=== PATIENT | female | born 1970 | race Caucasian/White ===

== ENCOUNTER 2018-02-13 10:08 | Emergency (ER) | payer MEDICAID, OTHER ==
[~2018-02-13] VITALS: Ht 165.1 cm; Wt 81.8 kg
[~2018-02-13 10:08] MED LIST: ALBU6.7H INH; COROTSUS LEFT EAR; IBUP-1984 PO
[2018-02-13 10:38] VITALS: BP 139/89
[2018-02-13] MEDS ORDERED: ketorolac trometh inj. 60 MG/2 ML VIAL IM ONE (10:55)
[2018-02-13] MEDS ORDERED: CYCL-1 PO (10:59)
== END 2018-02-13 11:11 | disposition home or self-care (01) ==
LOC: ER 10:08
DX: M54.5 Low back pain (principal); G89.29 Other chronic pain; D36.10 Benign neoplasm of peripheral nerves and autonomic nervous system, unspecified; J45.909 Unspecified asthma, uncomplicated; K21.9 Gastro-esophageal reflux disease without esophagitis; Z79.899 Other long term (current) drug therapy
CPT/HCPCS: 99283

== ENCOUNTER 2018-12-17 08:56 | Emergency (ER) | payer MEDICAID ==
[~2018-12-17] VITALS: Ht 165.1 cm; Wt 79.0 kg
[~2018-12-17 08:56] MED LIST changes: +CYCL-1 PO
[2018-12-17] MEDS ORDERED: LIDOcaine Viscous 15ml cup PO ONE (09:25)
[2018-12-17] MEDS ORDERED: mag hydrox/Alum hydrox/simeth 30ml oral suspension PO ONE (09:25)
[2018-12-17] MEDS ORDERED: famotidine 20mg tablet PO ONE (09:25)
[2018-12-17] MEDS ORDERED: pantoprazole 40mg Tablet.DR PO ONE (09:25)
[2018-12-17 10:16] VITALS: BP 144/91
[2018-12-17] MEDS ORDERED: PANT-47 PO (10:24)
== END 2018-12-17 10:39 | disposition home or self-care (01) ==
LOC: ER 08:57
DX: K21.9 Gastro-esophageal reflux disease without esophagitis (principal); J45.909 Unspecified asthma, uncomplicated
CPT/HCPCS: 93005; 99284

== ENCOUNTER 2022-01-21 20:16 | Emergency (ER) | payer MEDICAID ==
[~2022-01-21] VITALS: Ht 165.1 cm; Wt 86.4 kg
[~2022-01-21 20:16] MED LIST changes: -ALBU6.7H INH; -COROTSUS LEFT EAR; -CYCL-1 PO; +GABA600T13 PO; -IBUP-1984 PO; +MELO-102 PO; +METF500T PO
[2022-01-21] MEDS ORDERED: acetaminophen 325mg tablet PO ONE (20:55)
[2022-01-21] MEDS ORDERED: dexamethasone sod phosphate 10mg/ml inj IV STA (21:06)
[2022-01-21] MEDS ORDERED: normal saline 1000ML IV soln IVB ONE (21:55)
[2022-01-21] MEDS ORDERED: ipratropium/albuterol 3ml nebule NEB ONE (22:45)
[2022-01-21 23:06] LABS: BASOPHILS % (AUTO) 0.6 % (0-1); EOSINOPHILS # (AUTO) 0.1 X10'3 (0-0.9); EOSINOPHILS % (AUTO) 2.3 % (0-6); HEMATOCRIT 36.1 % (35.0-45.0); HEMOGLOBIN 12.3 g/dl (12.0-16.0); LYMPHOCYTES # (AUTO) 0.5 X10'3 (1.1-4.8); LYMPHOCYTES % (AUTO) 8.8 % (21-51); MEAN CORPUSCULAR HEMOGLOBIN 28.4 PG (27.0-31.0); MEAN CORPUSCULAR VOLUME 83.6 FL (78-98); MEAN PLATELET VOLUME 7.8 FL (7.4-10.4); MONOCYTES # (AUTO) 0.4 X10'3 (0-0.9); MONOCYTES % (AUTO) 7.6 % (2-12); NEUTROPHILS # (AUTO) 4.5 X10'3 (1.8-7.7); NEUTROPHILS % (AUTO) 80.7 % (42-75); PLATELET COUNT 222 X10'3 (140-440); RED BLOOD COUNT 4.31 X10'6 (4.20-5.60); RED CELL DISTRIBUTION WIDTH 13.9 % (11.5-14.5); WHITE BLOOD COUNT 5.6 X10'3 (4.5-11.0)
[2022-01-21 23:10] LABS: ALANINE AMINOTRANSFERASE 174 U/L (12-78); ALBUMIN 3.2 G/DL (3.4-5.0); ALBUMIN/GLOBULIN RATIO 1.1 (1.1-1.5); ALKALINE PHOSPHATASE 141 IU/L (46-116); ANION GAP 7 (8-16); ASPARTATE AMINO TRANSFERASE 50 U/L (10-37); BILIRUBIN,TOTAL 0.2 MG/DL (0.1-1.0); BLOOD UREA NITROGEN 11 MG/DL (7-18); BUN/CREATININE RATIO 12.6 (6.6-38.0); CALCIUM 7.7 MG/DL (8.5-10.1); CHLORIDE 107 MMOL/L (99-107); CREATININE 0.87 MG/DL (0.40-0.90); GLUCOSE 239 MG/DL (70-104); POTASSIUM 3.6 MMOL/L (3.5-5.1); SODIUM 137 MMOL/L (135-145); TOTAL CARBON DIOXIDE 22.7 MMOL/L (24-32); TOTAL PROTEIN 6.2 G/DL (6.4-8.2); eGFR 69 ML/MIN
[2022-01-21 23:15] LABS: CLARITY,URINE SLIGHTLY CLOUDY (Clear); COLOR,URINE YELLOW (Yellow); GLUCOSE, URINE >=1000 mg/dl (Neg); KETONES,URINE NEGATIVE (Neg); LEUKOCYTE ESTERASE ,URINE NEGATIVE (Neg); NITRITES, URINE POSITIVE (Neg); OCCULT BLOOD,URINE SMALL (Neg); PROTEIN,URINE NEGATIVE (Neg); UROBILINOGEN,URINE 0.2 E.U/dL (0.2-1.0)
[2022-01-21 23:16] LABS: UA COLLECTION TYPE CLN CATCH MIDSTREAM
[2022-01-21 23:22] LABS: BACTERIA,URINE 4+ /HPF (Neg); RBC,URINE 0-2 /HPF (0-2)
[2022-01-21 23:23] LABS: MUCUS STRANDS FEW /LPF (Neg); SQUAMOUS EPITHELIAL CELL,UR FEW /LPF (FEW)
[2022-01-21] MEDS ORDERED: BEBTELOVIMAB 175 MG/2 ML VIAL IV ONE (23:45)
[2022-01-21] MEDS ORDERED: albuterol 2.5 MG/3 ML nebule NEB PRN (23:50)
[2022-01-21] MEDS ORDERED: famotidine/PF 10 mg/ml inj IV PRN (23:50)
[2022-01-21] MEDS ORDERED: acetaminophen 325mg tablet PO PRN (23:50)
[2022-01-21] MEDS ORDERED: diphenhydrAMINE 50 mg/ml inj IV PRN (23:50)
[2022-01-21] MEDS ORDERED: hydrocortisone sod succ/PF 100mg/2ml inj. IV PRN (23:50)
[2022-01-21] MEDS ORDERED: epiNEPHrine 1 mg/ml inj IM PRN (23:50)
[2022-01-22] MEDS ORDERED: CEPH-585 PO (00:38)
[2022-01-22 02:59] VITALS: BP 128/84
--- NOTE | 2022-01-24 12:34 | NUR ---
PT CALLED REGARDING VISIT ON 01/21, NO ANSWER, MSG LEFT TO RETURN CALL.
--- NOTE | 2022-01-29 10:29 | NUR ---
3RD CALL MADE TO PT REGARDING VISIT ON 01/21 AND LAB WORK RECEIVED. NO ANSWER, MSG LEFT TO RETURN CALL AND LETTER SENT TO PT'S RESIDENCE
--- NOTE | 2022-01-30 16:16 | NUR ---
PT CALLED REGARDING VISIT ON 01/21/22. INFORMED THAT UA RESULTS WERE POSITIVE FOR A UTI AND THAT THE MEDICATION GIVEN WAS RESISTENT TO THE BACTERIA GROWN IN THE CULTURE AND THAT A NEW RX WOULD BE GIVEN. PT REQUESTED THAT NEW RX BE CALLED INTO [facility] [address] SEPTRA DS, 1 PO BID x7 DAYS, #14 WAS CALLED INTO [facility] ON [facility]. REQUESTED
== END 2022-01-22 04:21 | disposition home or self-care (01) ==
LOC: ER 20:17
DX: U07.1 COVID-19 (principal); N39.0 Urinary tract infection, site not specified; F17.200 Nicotine dependence, unspecified, uncomplicated; K21.9 Gastro-esophageal reflux disease without esophagitis; E11.9 Type 2 diabetes mellitus without complications; J45.909 Unspecified asthma, uncomplicated; F15.10 Other stimulant abuse, uncomplicated; Z79.899 Other long term (current) drug therapy
CPT/HCPCS: 36415; 71045; 80053; 81001; 83605; 84145; 85025; 87040; 87077; 87088; 87186; 87502; 87503; 87635; 93005; 94640; 96361; 96374; 99285; C9803; J1100; J7030; M0222; Q0222; 94760

== ENCOUNTER 2022-04-19 19:41 | Emergency (ER) | payer MEDICAID ==
[~2022-04-19] VITALS: Ht 165.1 cm; Wt 78.6 kg
[~2022-04-19 19:41] MED LIST changes: +CEPH-585 PO
--- NOTE | 2022-04-19 19:56 | NUR ---
DR MCFADDEN AWARE OF PT.
--- NOTE | 2022-04-19 19:57 | NUR ---
PT IS BEING TAKEN TO CT ON A WHEELCHAIR.
[2022-04-19 20:59] LABS: BASOPHILS # (AUTO) 0.1 X10'3 (0-0.2); BASOPHILS % (AUTO) 0.8 % (0-1); EOSINOPHILS # (AUTO) 0.2 X10'3 (0-0.9); EOSINOPHILS % (AUTO) 1.7 % (0-6); LYMPHOCYTES # (AUTO) 2.2 X10'3 (1.1-4.8); LYMPHOCYTES % (AUTO) 21.8 % (21-51); MEAN CORPUSCULAR HGB CONC 34.9 g/dL (33.0-36.5); MONOCYTES # (AUTO) 0.7 X10'3 (0-0.9); NEUTROPHILS # (AUTO) 6.9 X10'3 (1.8-7.7); NEUTROPHILS % (AUTO) 68.7 % (42-75); PLATELET COUNT 264 X10'3 (140-440); RED BLOOD COUNT 5.19 X10'6 (4.20-5.60); RED CELL DISTRIBUTION WIDTH 13.5 % (11.5-14.5)
[2022-04-19 21:00] LABS: APTT 26 SECONDS (22-32)
[2022-04-19 21:01] LABS: ALANINE AMINOTRANSFERASE 119 U/L (12-78); ALBUMIN 3.9 G/DL (3.4-5.0); ALBUMIN/GLOBULIN RATIO 1.1 (1.1-1.5); ALKALINE PHOSPHATASE 192 IU/L (46-116); ANION GAP 9 (8-16); ASPARTATE AMINO TRANSFERASE 29 U/L (10-37); BILIRUBIN,TOTAL 0.5 MG/DL (0.1-1.0); BLOOD UREA NITROGEN 17 MG/DL (7-18); BUN/CREATININE RATIO 14.8 (6.6-38.0); CALCIUM 9.2 MG/DL (8.5-10.1); CHLORIDE 103 MMOL/L (99-107); CREATININE 1.15 MG/DL (0.40-0.90); GLUCOSE 276 MG/DL (70-104); SODIUM 140 MMOL/L (135-145); TOTAL CARBON DIOXIDE 28.2 MMOL/L (24-32); TOTAL PROTEIN 7.6 G/DL (6.4-8.2); eGFR 50 ML/MIN
[2022-04-19] MEDS ORDERED: normal saline 1000ML IV soln IVB ONE (22:15)
[2022-04-20 01:43] VITALS: BP 134/87
== END 2022-04-20 01:51 | disposition home or self-care (01) ==
LOC: ER 19:42
DX: E86.0 Dehydration (principal); Z20.822 Contact with and (suspected) exposure to COVID-19; J44.9 Chronic obstructive pulmonary disease, unspecified; E11.9 Type 2 diabetes mellitus without complications; F17.210 Nicotine dependence, cigarettes, uncomplicated; F15.10 Other stimulant abuse, uncomplicated; Z79.899 Other long term (current) drug therapy
CPT/HCPCS: 36415; 70450; 71045; 80053; 82948; 85025; 85610; 85730; 87635; 93005; 96360; 99285; C9803; J7030

== ENCOUNTER 2022-04-22 16:53 | Emergency (ER) | payer MEDICAID | END 2022-04-22 18:52 | disposition left against medical advice (07) | LOC: ER 16:54 | DX: E11.8 Type 2 diabetes mellitus with unspecified complications (principal); Z53.21 Procedure and treatment not carried out due to patient leaving prior to being seen by health care provider ==

== ENCOUNTER 2022-09-11 21:24 | Emergency (ER) | payer MEDICAID ==
[~2022-09-11] VITALS: Ht 165.1 cm; Wt 81.8 kg
[2022-09-11 21:31] VITALS: BP 139/93
== END 2022-09-12 04:43 | disposition left against medical advice (07) ==
LOC: ER 21:25
DX: R68.84 Jaw pain (principal); Z53.21 Procedure and treatment not carried out due to patient leaving prior to being seen by health care provider

== ENCOUNTER 2023-12-07 18:59 | Inpatient (IN) | payer MEDICAID ==
[~2023-12-07] VITALS: Ht 165.1 cm; Wt 77.1 kg
[~2023-12-07 18:59] MED LIST changes: -CEPH-585 PO
[2023-12-07 21:35] VITALS: PULSE 94; RESP 18; O2SAT 97
[2023-12-07] MEDS: ipratropium/albuterol 3ml nebule NEB ONE (21:35)
[2023-12-07 21:43] VITALS: PULSE 94; RESP 16; O2SAT 97
[2023-12-07] MEDS: methylPREDNISolone sod succ 125mg/2ml vial IV ONE (21:46)
[2023-12-07] MEDS: magnesium 2GM in 50ml NS 50 ML IV ONE (21:46)
[2023-12-07] MEDS: acetaminophen 325mg tablet PO ONE (21:46)
[2023-12-07] MEDS: normal saline 1000ML IV soln IVB ONE ×2 (21:46→23:12)
[2023-12-07 22:07] LABS: BASOPHILS % (AUTO) 0.5 % (0-1); EOSINOPHILS # (AUTO) 0.2 X10'3 (0-0.9); HEMATOCRIT 44.6 % (35.0-45.0); HEMOGLOBIN 14.8 g/dl (12.0-16.0); LYMPHOCYTES # (AUTO) 1.9 X10'3 (1.1-4.8); LYMPHOCYTES % (AUTO) 18.8 % (21-51); MEAN CORPUSCULAR HEMOGLOBIN 27.9 PG (27.0-31.0); MEAN CORPUSCULAR HGB CONC 33.2 g/dL (33.0-36.5); MEAN CORPUSCULAR VOLUME 84.1 FL (78-98); MEAN PLATELET VOLUME 8.8 FL (7.4-10.4); MONOCYTES # (AUTO) 0.4 X10'3 (0-0.9); MONOCYTES % (AUTO) 4.1 % (2-12); NEUTROPHILS # (AUTO) 7.7 X10'3 (1.8-7.7); NEUTROPHILS % (AUTO) 74.6 % (42-75); PLATELET COUNT 299 X10'3 (140-440); RED CELL DISTRIBUTION WIDTH 13.6 % (11.5-14.5); WHITE BLOOD COUNT 10.3 X10'3 (4.5-11.0)
[2023-12-07 22:14] LABS: ALBUMIN 3.5 G/DL (3.4-5.0); ANION GAP 11 (8-16); BLOOD UREA NITROGEN 15 MG/DL (7-18); CALCIUM 8.9 MG/DL (8.5-10.1); CHLORIDE 100 MMOL/L (99-107); CREATININE 1.15 MG/DL (0.40-0.90); POTASSIUM 3.7 MMOL/L (3.5-5.1); SODIUM 138 MMOL/L (135-145); TOTAL CARBON DIOXIDE 26.8 MMOL/L (24-32); eCRCL 51 ML/MIN; eGFR 50 ML/MIN
[2023-12-07 22:17] LABS: GLUCOSE 402 MG/DL (70-104)
[2023-12-07 22:21] LABS: HCG SERUM QL NEGATIVE
[2023-12-08] VITALS (18 sets, daily range): BP systolic 109–150; BP diastolic 61–83; PULSE 78–120; RESP 6–20; TEMP 96.8–98.2; O2SAT 92–100
[2023-12-08] MEDS: albuterol 2.5 MG/3 ML nebule NEB ONE (00:26)
[2023-12-08] MEDS ORDERED: HYDROcodone/acetaminophen 10/325mg tab PO PRN (00:50)
[2023-12-08] MEDS ORDERED: magnesium hydroxide 30ml (MOM) UD suspension PO PRN (00:50)
[2023-12-08] MEDS ORDERED: potassium Cl 40MEQ/1/2NS 520ml 520 ML IV PRN (00:50)
[2023-12-08] MEDS ORDERED: magnesium 2GM in 50ml NS 50 ML IV PRN (00:50)
[2023-12-08] MEDS ORDERED: glucagon, human recombinant 1mg kit SUBCUT PRN (00:50)
[2023-12-08] MEDS ORDERED: potassium Cl 20 mEq SR tablet PO PRN ×2 (00:50)
[2023-12-08] MEDS ORDERED: magnesium 4gm in 100ml NS 100 ML IV PRN (00:50)
[2023-12-08] MEDS ORDERED: DEXTROSE 15 GM of carb/4 tabs (each vial/BOTTLE has 4 tablets) PO PRN ×2 (00:50)
[2023-12-08] MEDS ORDERED: morphine 2 MG/ML inj. syringe IV PRN (00:50)
[2023-12-08] MEDS ORDERED: dextrose 50%-water 50ml dispensing syringe IV PRN ×2 (00:50)
[2023-12-08] MEDS ORDERED: magnesium Cl slow-release 64mg tablet PO PRN (00:50)
[2023-12-08] MEDS ORDERED: ondansetron/PF 4mg/2ml inj IV PRN (00:50)
[2023-12-08] MEDS ORDERED: mag hydrox/Alum hydrox/simeth 30ml oral suspension PO PRN (00:50)
[2023-12-08] MEDS ORDERED: HYDROcodone/acetaminophen 5mg/325mg tablet PO PRN (00:50)
[2023-12-08] MEDS: methylPREDNISolone sod succ 125mg/2ml vial IV SCH (01:40)
[2023-12-08] MEDS: MESSAGE TO PHARMACY PO ONE (01:40)
[2023-12-08 02:08] LABS: POTASSIUM 3.5 MMOL/L (3.5-5.1)
[2023-12-08] MEDS: insulin Lispro (HumaLOG) vial - multi-dose SQ SCH (03:59)
[2023-12-08] MEDS: insulin glargine (Lantus) pen - multi-dose SQ SCH (04:00)
[2023-12-08] MEDS: K and/or MAG REPLACEMENT MC SCH (08:00)
[2023-12-08] MEDS: docusate sod 100mg capsule PO SCH (08:18)
[2023-12-08] MEDS ORDERED: albuterol 2.5 MG/3 ML nebule NEB PRN (08:20)
[2023-12-08 10:52] LABS: URINE AMPHETAMINE SCREEN POSITIVE (Neg); URINE BARBITUATE SCREEN NEGATIVE (Neg); URINE BENZODIAZEPINES SCREEN NEGATIVE (Neg); URINE CANNABINOID SCREEN NEGATIVE (Neg); URINE COCAINE SCREEN NEGATIVE (Neg); URINE METHADONE SCREEN NEGATIVE (Neg); URINE OPIATE SCREEN NEGATIVE (Neg); URINE PHENCYCLIDINE SCREEN NEGATIVE (Neg)
[2023-12-08] MEDS: ipratropium/albuterol 3ml nebule NEB SCH (10:59)
[2023-12-08] MEDS: methylPREDNISolone sod succ/PF 40mg inj. IV SCH (16:24)
[2023-12-08] MEDS: DOXYCYCLINE 100MG CAPSULE PO SCH (17:35)
[2023-12-08] MEDS: acetaminophen 325mg tablet PO PRN (18:48)
[2023-12-08] MEDS: gabapentin 300mg capsule PO SCH (20:35)
[2023-12-08] MEDS: enoxaparin 40mg/0.4ml syringe SQ SCH (20:36)
[2023-12-08] MEDS: budesonide 0.5mg/2ml UD nebule IH SCH (20:41)
[2023-12-09] VITALS (11 sets, daily range): BP systolic 109–144; BP diastolic 64–86; PULSE 71–125; RESP 16–20; TEMP 96.8–98.6; O2SAT 95–100
[2023-12-09 05:43] LABS: BASOPHILS # (AUTO) 0.1 X10'3 (0-0.2); BASOPHILS % (AUTO) 0.3 % (0-1); EOSINOPHILS % (AUTO) 0 % (0-6); HEMATOCRIT 39.7 % (35.0-45.0); HEMOGLOBIN 13.3 g/dl (12.0-16.0); LYMPHOCYTES # (AUTO) 0.7 X10'3 (1.1-4.8); LYMPHOCYTES % (AUTO) 3.3 % (21-51); MEAN CORPUSCULAR HEMOGLOBIN 28.2 PG (27.0-31.0); MEAN CORPUSCULAR HGB CONC 33.4 g/dL (33.0-36.5); MEAN CORPUSCULAR VOLUME 84.3 FL (78-98); MEAN PLATELET VOLUME 8.3 FL (7.4-10.4); MONOCYTES # (AUTO) 0.4 X10'3 (0-0.9); MONOCYTES % (AUTO) 1.7 % (2-12); NEUTROPHILS # (AUTO) 21.2 X10'3 (1.8-7.7); NEUTROPHILS % (AUTO) 94.7 % (42-75); PLATELET COUNT 299 X10'3 (140-440); RED BLOOD COUNT 4.71 X10'6 (4.20-5.60); RED CELL DISTRIBUTION WIDTH 13.5 % (11.5-14.5); WHITE BLOOD COUNT 22.4 X10'3 (4.5-11.0)
[2023-12-09 05:52] LABS: ALANINE AMINOTRANSFERASE 70 U/L (12-78); ALBUMIN 2.9 G/DL (3.4-5.0); ALBUMIN/GLOBULIN RATIO 0.8 (1.1-1.5); ALKALINE PHOSPHATASE 157 IU/L (46-116); ANION GAP 10 (8-16); ASPARTATE AMINO TRANSFERASE 16 U/L (10-37); BILIRUBIN,TOTAL 0.2 MG/DL (0.1-1.0); BLOOD UREA NITROGEN 20 MG/DL (7-18); BUN/CREATININE RATIO 22.7 (10.0-20.0); CALCIUM 8.4 MG/DL (8.5-10.1); CHLORIDE 106 MMOL/L (99-107); CREATININE 0.88 MG/DL (0.40-0.90); GLUCOSE 334 MG/DL (70-104); MAGNESIUM 1.8 MG/DL (1.5-2.4); POTASSIUM 4.3 MMOL/L (3.5-5.1); SODIUM 140 MMOL/L (135-145); TOTAL CARBON DIOXIDE 23.7 MMOL/L (24-32); TOTAL PROTEIN 6.6 G/DL (6.4-8.2); eCRCL 67 ML/MIN; eGFR 67 ML/MIN
[2023-12-10] VITALS (13 sets, daily range): BP systolic 123–132; BP diastolic 52–75; PULSE 87–101; RESP 16–18; TEMP 97.4–98.7; O2SAT 95–98
[2023-12-10 06:41] LABS: BASOPHILS % (AUTO) 0.2 % (0-1); EOSINOPHILS % (AUTO) 0 % (0-6); HEMATOCRIT 39.3 % (35.0-45.0); LYMPHOCYTES % (AUTO) 5.7 % (21-51); MEAN CORPUSCULAR HEMOGLOBIN 27.9 PG (27.0-31.0); MEAN CORPUSCULAR VOLUME 84.4 FL (78-98); MEAN PLATELET VOLUME 8.1 FL (7.4-10.4); MONOCYTES # (AUTO) 0.3 X10'3 (0-0.9); MONOCYTES % (AUTO) 1.6 % (2-12); NEUTROPHILS # (AUTO) 16.8 X10'3 (1.8-7.7); NEUTROPHILS % (AUTO) 92.5 % (42-75); PLATELET COUNT 319 X10'3 (140-440); RED BLOOD COUNT 4.65 X10'6 (4.20-5.60); RED CELL DISTRIBUTION WIDTH 13.6 % (11.5-14.5); WHITE BLOOD COUNT 18.2 X10'3 (4.5-11.0)
[2023-12-10 07:06] LABS: ALANINE AMINOTRANSFERASE 67 U/L (12-78); ALBUMIN 2.7 G/DL (3.4-5.0); ALBUMIN/GLOBULIN RATIO 0.8 (1.1-1.5); ALKALINE PHOSPHATASE 149 IU/L (46-116); ANION GAP 11 (8-16); ASPARTATE AMINO TRANSFERASE 18 U/L (10-37); BILIRUBIN,TOTAL 0.4 MG/DL (0.1-1.0); BLOOD UREA NITROGEN 21 MG/DL (7-18); BUN/CREATININE RATIO 22.3 (10.0-20.0); CALCIUM 7.8 MG/DL (8.5-10.1); CHLORIDE 103 MMOL/L (99-107); CREATININE 0.94 MG/DL (0.40-0.90); GLUCOSE 291 MG/DL (70-104); MAGNESIUM 1.9 MG/DL (1.5-2.4); POTASSIUM 4.4 MMOL/L (3.5-5.1); SODIUM 138 MMOL/L (135-145); TOTAL CARBON DIOXIDE 24.5 MMOL/L (24-32); TOTAL PROTEIN 6.2 G/DL (6.4-8.2); eCRCL 63 ML/MIN; eGFR 63 ML/MIN
[2023-12-11 06:00] VITALS: BP 106/56; PULSE 69; RESP 16; TEMP 97.2; O2SAT 100
[2023-12-11 07:49] LABS: BASOPHILS # (AUTO) 0.1 X10'3 (0-0.2); BASOPHILS % (AUTO) 0.5 % (0-1); EOSINOPHILS % (AUTO) 0 % (0-6); HEMATOCRIT 42.4 % (35.0-45.0); HEMOGLOBIN 14.1 g/dl (12.0-16.0); LYMPHOCYTES # (AUTO) 1.3 X10'3 (1.1-4.8); LYMPHOCYTES % (AUTO) 8.5 % (21-51); MEAN CORPUSCULAR HEMOGLOBIN 28.2 PG (27.0-31.0); MEAN CORPUSCULAR HGB CONC 33.1 g/dL (33.0-36.5); MEAN CORPUSCULAR VOLUME 85.1 FL (78-98); MEAN PLATELET VOLUME 8.1 FL (7.4-10.4); MONOCYTES # (AUTO) 0.4 X10'3 (0-0.9); MONOCYTES % (AUTO) 2.9 % (2-12); NEUTROPHILS # (AUTO) 13.3 X10'3 (1.8-7.7); NEUTROPHILS % (AUTO) 88.1 % (42-75); PLATELET COUNT 322 X10'3 (140-440); RED BLOOD COUNT 4.99 X10'6 (4.20-5.60); RED CELL DISTRIBUTION WIDTH 13.7 % (11.5-14.5); WHITE BLOOD COUNT 15.1 X10'3 (4.5-11.0)
[2023-12-11 08:00] VITALS: RESP 16; O2SAT 100
[2023-12-11 08:12] LABS: ALANINE AMINOTRANSFERASE 57 U/L (12-78); ALBUMIN 2.9 G/DL (3.4-5.0); ALBUMIN/GLOBULIN RATIO 0.9 (1.1-1.5); ALKALINE PHOSPHATASE 143 IU/L (46-116); ANION GAP 8 (8-16); ASPARTATE AMINO TRANSFERASE 16 U/L (10-37); BILIRUBIN,TOTAL 0.3 MG/DL (0.1-1.0); BLOOD UREA NITROGEN 21 MG/DL (7-18); BUN/CREATININE RATIO 24.7 (10.0-20.0); CHLORIDE 103 MMOL/L (99-107); CREATININE 0.85 MG/DL (0.40-0.90); GLUCOSE 297 MG/DL (70-104); MAGNESIUM 1.7 MG/DL (1.5-2.4); POTASSIUM 4.6 MMOL/L (3.5-5.1); SODIUM 139 MMOL/L (135-145); TOTAL CARBON DIOXIDE 27.7 MMOL/L (24-32); TOTAL PROTEIN 6.2 G/DL (6.4-8.2); eCRCL 70 ML/MIN; eGFR 70 ML/MIN
[2023-12-11 08:34] VITALS: PULSE 89; RESP 18; O2SAT 98
[2023-12-11 08:39] VITALS: PULSE 107; RESP 18
[2023-12-11 10:00] VITALS: BP 134/72; PULSE 98; RESP 16; TEMP 97.8; O2SAT 93
[2023-12-11] MEDS ORDERED: NEED-136 SUBCUT (12:30)
[2023-12-11] MEDS ORDERED: PRED20TA PO (12:30)
[2023-12-11] MEDS ORDERED: IPRA4AER IH (12:30)
[2023-12-11] MEDS ORDERED: INSU100I52 SQ (12:30)
[2023-12-11] MEDS ORDERED: DOXY-224 PO (12:30)
[2023-12-11] MEDS ORDERED: INSU300I12 SQ (12:30)
== END 2023-12-11 14:15 | disposition home or self-care (01) | DRG 140 ==
LOC: ER 18:59 → ED HOLD 12-08 00:56 → ER 12-08 01:07 → ORTHO 4S 12-08 03:54
PROVIDERS: ADMIT Internal Medicine; ATTEND Family Medicine
DX: J44.1 Chronic obstructive pulmonary disease with (acute) exacerbation (principal); N17.0 Acute kidney failure with tubular necrosis; J96.00 Acute respiratory failure, unspecified whether with hypoxia or hypercapnia; E11.649 Type 2 diabetes mellitus with hypoglycemia without coma; E11.65 Type 2 diabetes mellitus with hyperglycemia; F15.10 Other stimulant abuse, uncomplicated; D72.823 Leukemoid reaction; R74.01 Elevation of levels of liver transaminase levels; G35 Multiple sclerosis; Z20.822 Contact with and (suspected) exposure to COVID-19; K21.9 Gastro-esophageal reflux disease without esophagitis; Z72.0 Tobacco use; Z71.6 Tobacco abuse counseling; Z79.899 Other long term (current) drug therapy
CPT/HCPCS: 36415; 71045; 80048; 80053; 80305; 82948; 83036; 83735; 84132; 84703; 85025; 87081; 87502; 87503; 87811; 94640; 94664; 94668; 94760; 99285; A4615; G0378; J1650; J1815; J2920; J2930; J3475; J7030

== ENCOUNTER 2024-12-10 02:19 | Emergency (ER) | payer MEDICAID ==
[~2024-12-10] VITALS: Ht 165.1 cm; Wt 74.1 kg
[~2024-12-10 02:19] MED LIST changes: +CEPH250T PO; +DOXY-224 PO; +GABA-1405 PO; -GABA600T13 PO; +HYDR-3965 PO; +IBUP-1985 PO; +INSU100I52 SQ; +INSU300I12 SQ; +IPRA4AER IH; +METF-436 PO; -METF500T PO; +NEED-136 SUBCUT; +PRED20TA PO; +SULF1TAB49 PO
[2024-12-10 02:21] VITALS: BP 128/76; PULSE 91; RESP 16; TEMP 97.9; O2SAT 100
== END 2024-12-10 05:57 | disposition home or self-care (01) ==
LOC: ER 02:21
DX: Z48.00 Encounter for change or removal of nonsurgical wound dressing (principal); E11.9 Type 2 diabetes mellitus without complications; G35 Multiple sclerosis; J44.9 Chronic obstructive pulmonary disease, unspecified; M19.90 Unspecified osteoarthritis, unspecified site
CPT/HCPCS: 99281

== ENCOUNTER 2025-04-17 19:44 | Emergency (ER) | payer MEDICAID ==
[~2025-04-17] VITALS: Ht 165.1 cm; Wt 72.7 kg
[~2025-04-17 19:44] MED LIST changes: -CEPH250T PO; -HYDR-3965 PO; -SULF1TAB49 PO
[2025-04-17 19:48] VITALS: TEMP 98.3
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
[2025-04-17 20:25] VITALS: BP 149/95; PULSE 101; RESP 16; O2SAT 97
== END 2025-04-17 20:28 | disposition home or self-care (01) ==
LOC: ER 19:44
DX: Z02.89 Encounter for other administrative examinations (principal); E11.9 Type 2 diabetes mellitus without complications; J44.89 Other specified chronic obstructive pulmonary disease; M19.90 Unspecified osteoarthritis, unspecified site; F15.90 Other stimulant use, unspecified, uncomplicated; K21.9 Gastro-esophageal reflux disease without esophagitis
CPT/HCPCS: 82948; 99283